=== PATIENT | male | born 1980 | race Caucasian/White ===

== ENCOUNTER 2025-02-26 22:56 | Emergency (ER) | payer MEDICAID ==
[~2025-02-26] VITALS: Ht 175.3 cm; Wt 81.8 kg
[2025-02-26 23:06] VITALS: TEMP 98.1
[2025-02-26 23:40] LABS: PLATELET COUNT (AUTO) 161 K/uL (150-450); RED BLOOD CELL COUNT(AUTO) 4.99 MIL/uL (4.50-5.90); RED CELL DISTRIBUTION WIDTH 12.5 % (11.5-14.5); WHITE BLOOD COUNT (AUTO) 4.9 K/uL (4.5-11.0)
[2025-02-26 23:51] LABS: CALCIUM, TOTAL 8.9 mg/dL (8.8-10.5); CREATININE 0.83 mg/dL (0.60-1.30); GLOMERULAR FILTR. RATE CALC > 60 mL/min (>60); GLUCOSE,RANDOM 115 mg/dL (70-110); SODIUM SERUM 142 mmol/L (136-145); UREA NITROGEN, BLOOD 9 mg/dL (7-18)
[2025-02-26 23:58] LABS: ASPARTATE AMINOTRANSFERASE 22 U/L (15-37); TOTAL PROTEIN, SERUM 6.7 g/dL (6.4-8.2)
[2025-02-26 23:59] LABS: TROPONIN I-HIGH SENSITIVITY 4 ng/L (<76)
[2025-02-27 00:32] VITALS: BP 136/89; PULSE 76; RESP 17; O2SAT 98
== END 2025-02-27 00:59 | disposition home or self-care (01) ==
LOC: EMS 22:56
DX: R07.89 Other chest pain (principal); I10 Essential (primary) hypertension
CPT/HCPCS: 71045; 80048; 80076; 83880; 84484; 85025; 93005; 99285; 36415-L1; 36415-TC